=== PATIENT | male | born 1950 | race Caucasian/White ===

== ENCOUNTER 2017-04-06 16:45 | Emergency (ER) | payer MEDICARE, OTHER ==
[~2017-04-06] VITALS: Ht 167.6 cm; Wt 85.3 kg
[~2017-04-06 16:45] MED LIST: ASPIR 8181 MG PO; NEXIUM40 MG PO; NORVASC5 MG PO; VICODIN 5-3001 EACH PO; ZOCOR20 MG PO; ZOFRAN ODT4 MG PO; ZYRTEC10 M5 PO
[2017-04-06] MEDS ORDERED: HYDROCODONE-AP1 EAC6 PO (17:26)
[2017-04-06] MEDS ORDERED: AMOXICILLIN 50500 MG PO (17:26)
[2017-04-06] MEDS ORDERED: IBUPROFEN 800800 M1 PO (17:26)
[2017-04-06 17:43] VITALS: BP 140/87
== END 2017-04-06 17:45 | disposition home or self-care (01) ==
LOC: M.ERS 16:45
DX: K08.89 Other specified disorders of teeth and supporting structures (principal); I10 Essential (primary) hypertension; E78.00 Pure hypercholesterolemia, unspecified; K21.9 Gastro-esophageal reflux disease without esophagitis; F10.99 Alcohol use, unspecified with unspecified alcohol-induced disorder; Z85.46 Personal history of malignant neoplasm of prostate; Z88.2 Allergy status to sulfonamides